=== PATIENT | male | born 1975 | race Caucasian/White ===

== ENCOUNTER 2016-03-15 14:52 | Emergency (ER) | payer OTHER ==
[2016-03-15 15:09] VITALS: BP 160/97
--- NOTE | 2016-03-15 16:02 | RAD ---
INDICATION: Cough, shortness of breath, chest pain. Intermittent fever. COMPARISON: February 12, 2013 TECHNIQUE: Dual energy PA and routine lateral views of the chest were obtained. REPORT: Clear lungs and pleural spaces. Negative for pneumothorax. The heart, pulmonary vasculature, and mediastinal contours are unremarkable. Unremarkable osseous structures and soft tissue contours. IMPRESSION: No evidence for pneumonia. No evidence for acute intrathoracic disease.
--- NOTE | 2016-03-15 16:04 | UC ---
Respiratory Complaint HPI - HPI Summary HPI Summary: Patient with CC of cough x 4 weeks with accompanying SOB. states he feels OK otherwise. no congestion, no sputum production. denies weakness, VALLADARES, chest tightness or chest discomfort. patient is obese. non-smoker. no allergies and takes no medications. - History of Current Complaint Chief Complaint: UCRespiratory Stated Complaint: COUGH Hx Obtained From: Patient Onset/Duration: Sudden Onset Severity Initially: Mild Severity Currently: Moderate Pain Intensity: 5 Pain Scale Used: 0-10 Numeric Character: Cough: Nonproductive Aggravating Factors: Deep Breaths Alleviating Factors: Nothing Associated Signs And Symptoms: Positive: Dyspnea - Risk Factors Pulmonary Embolism Risk Factors: Negative - Allergies/Home Medications Allergies/Adverse Reactions: Allergies Allergy/AdvReac Type Severity Reaction Status Date / Time No Known Allergies Allergy Verified 03/15/16 15:09 PMH/Surg Hx/FS Hx/Imm Hx Previously Healthy: Yes Endocrine History Of: Denies: Diabetes, Thyroid Disease, Hyperthyroidism, Hypothyroidism, Dyslipidemia Cardiovascular History Of: Denies: Cardiac Disorders, Hypertension, Pacemaker/ICD, Myocardial Infarction , Congestive Heart Failure, Atrial Fibrillation, Deep Vein Thrombosis, Bleeding Disorders Respiratory History Of: Denies: COPD, Asthma, Bronchitis, Pneumonia, Pulmonary Embolism GI/ History Of: Denies: Gastroesophageal Reflux, Ulcer, Gastrointestinal Bleed, Gall Bladder Disease, Kidney Stones, Diverticulitis, Renal Disease, Urosepsis Neurological History Of: Denies: TIA, CVA, Dementia, Seizures, Migraine Psychological History Of: Denies: Anxiety, Depression, Bipolar Disorder, Schizophrenia, Post Traumatic Stress Disorder Cancer History Of: Denies: Lung Cancer, Colorectal Cancer, Breast Cancer, Prostate Cancer, Cervical Cancer Other History Of: Negative For: HIV, Hepatitis B, Hepatitis C, Anticoagulant Therapy - Surgical History Surgical History: Yes Surgery Procedure, Year, and Place: LT KNEE- BONE CHIP REMOVED -2010. [facility]ESSICA VE[facility] leg. TONSILECTOMY. WISDOM TEETH - Family History Known Family History: Positive: Unknown Negative: Cardiac Disease, Hypertension - Social History Occupation: Employed Full-time Lives: With Family Alcohol Use: Occasionally Substance Use Type: None Smoking Status (MU): Never Smoked Tobacco Type: Smokeless Tobacco Review of Systems Constitutional: Negative Skin: Negative Eyes: Negative ENT: Negative Respiratory: Shortness Of Breath, Cough Cardiovascular: Negative Motor: Negative Musculoskeletal: Negative Neurological: Negative All Other Systems Reviewed And Are Negative: Yes Physical Exam Triage Information Reviewed: Yes Appearance: No Pain Distress, Obese - morbidly Vital Signs: Initial Vital Signs Temp 96.9 F 03/15/16 15:06 Pulse 102 03/15/16 15:06 Resp 18 03/15/16 15:06 BP 160/97 03/15/16 15:06 Pulse Ox 97 03/15/16 15:06 Vital Signs Reviewed: Yes Eye Exam: Normal Eyes: Positive: Conjunctiva Clear ENT Exam: Normal Dental Exam: Normal Neck exam: Normal Neck: Positive: Supple, Nontender, No Lymphadenopathy Respiratory Exam: Normal Respiratory: Positive: Chest non-tender, Decreased breath sounds Cardiovascular Exam: Normal Musculoskeletal Exam: Normal Musculoskeletal: Positive: Strength Intact, ROM Intact Neurological Exam: Normal Psychological Exam: Normal Psychological: Positive: Normal Response To Family, Age Appropriate Behavior Skin Exam: Normal Diagnostic Evaluation - Laboratory O2 Sat by Pulse Oximetry: 97 - Radiology Xray Interpretation: No Acute Changes Radiology Interpretation Completed By: Radiologist Respiratory Course/Dx - Course Course Of Treatment: Chest xray. no wheezing heard on physical exam. d/t cough of 4 weeks - chest xray ordered. no acute changes. patient prescribed short course prednisone, robitussin with codeine and return precautions for worsening symptoms. - Differential Dx/Diagnosis Differential Diagnosis/HQI/PQRI: Bronchitis, Lower Resp Infection, Sinusitis Provider Diagnoses: cough - Physician Notification/Consults Instructed by Provider To: Have Pt Call For Appt. Discharge - Discharge Plan Condition: Stable Disposition: HOME Prescriptions: guaiFENesin/CODIEN 100MG-10MG* [Robitussin AC 100Mg-10Mg*] 10 ml PO Q6H PRN # 200 ml MDD 40 PRN Reason: Cough predniSONE TAB* [Deltasone TAB*] 10 mg PO DAILY #17 tab Patient Education Materials: Upper Respiratory Infection (ED) Referrals: Henrietta Webster MD [Primary Care Provider] - Additional Instructions: Drink plenty of fluids. Take medications as prescribed to you. If symptoms worsen or fail to improve, come back to .
== END 2016-03-15 16:14 | disposition home or self-care (01) ==
LOC: UCEAST 14:52
DX: R05 Cough (principal); R06.02 Shortness of breath
CPT/HCPCS: 71020; 99211; G0463

== ENCOUNTER 2018-03-27 14:46 | Emergency (ER) | payer OTHER ==
[2018-03-27 15:17] VITALS: BP 169/94
--- NOTE | 2018-03-27 15:49 | ED ---
Abdominal Pain/Male - HPI Summary HPI Summary: patient has had pain in the abdomen for the last several days, somewhat better on sitting, no vomiting, no change in bowel habits - History of Current Complaint Chief Complaint: UCAbdominalPain Stated Complaint: ABDOMINAL PAIN Time Seen by Provider: 03/27/18 15:27 Hx Obtained From: Patient Onset/Duration: Sudden Onset Timing: Constant Severity Initially: Moderate Severity Currently: Moderate Pain Intensity: 6 - Allergies/Home Medications Allergies/Adverse Reactions: Allergies Allergy/AdvReac Type Severity Reaction Status Date / Time No Known Allergies Allergy Verified 03/27/18 15:17 Home Medications: Home Medications Telmisartan 40 mg PO DAILY 03/27/18 [History Confirmed 03/27/18] metFORMIN* [Glucophage 1000 MG TAB *] 500 mg PO BID 03/27/18 [History Confirmed 03/27/18] PMH/Surg Hx/FS Hx/Imm Hx Previously Healthy: No - diabetes , hypertension, 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 Endocrine/Hematology History: Reports: Hx Diabetes Denies: Hx Anticoagulant Therapy, Hx Thyroid Disease Cardiovascular History: Reports: Hx Hypertension Denies: Hx Congestive Heart Failure, Hx Deep Vein Thrombosis, Hx Myocardial Infarction, Hx Pacemaker/ICD Respiratory History: Denies: Hx Asthma, Hx Chronic Obstructive Pulmonary Disease (COPD), Hx Lung Cancer, Hx Pneumonia, Hx Pulmonary Embolism GI History: Denies: Hx Gall Bladder Disease, Hx Gastrointestinal Bleed, Hx Ulcer, Hx Urosepsis History: Denies: Hx Kidney Stones, Hx Renal Disease Musculoskeletal History: Denies: Hx Rheumatoid Arthritis, Hx Osteoporosis Sensory History: Denies: Hx Hearing Aid Neurological History: Denies: Hx Dementia, Hx Migraine, Hx Seizures, Hx Transient Ischemic Attacks (TIA) Psychiatric History: Denies: Hx Anxiety, Hx Depression, Hx Panic Disorder, Hx Schizophrenia, Hx Bipolar Disorder - Cancer History Cancer Type, Location and 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 [facility]ESSICA VEINS leg - [facility]. TONSILECTOMY. WISDOM TEETH Infectious Disease History: No Infectious Disease History: Denies: Hx Clostridium Difficile, Hx Hepatitis, Hx Human Immunodeficiency Virus (HIV), Hx of Known/Suspected MRSA, Hx Shingles, Hx Tuberculosis, Hx Known/ Suspected VRE, Hx Known/Suspected VRSA, History Other Infectious Disease, Traveled Outside the [place] in Last 30 Days - Family History Known Family History: Positive: Unknown Negative: Cardiac Disease, Hypertension - Social History Alcohol Use: Rare Substance Use Type: Reports: None Hx Tobacco Use: No Smoking Status (MU): Never Smoked Tobacco Type: Smokeless Tobacco Amount Used/How Often: 1 can a day Review of Systems Constitutional: Negative Eyes: Negative ENT: Negative Cardiovascular: Negative Respiratory: Negative Positive: Abdominal Pain Genitourinary: Negative Skin: Negative Neurological: Negative All Other Systems Reviewed And Are Negative: Yes Physical Exam Triage Information Reviewed: Yes Vital Signs On Initial Exam: Initial Vitals Temp Pulse Resp BP Pulse Ox 36.6 C 83 16 169/94 98 03/27/18 15:12 03/27/18 15:12 03/27/18 15:12 03/27/18 15:12 03/27/18 15:12 Vital Signs Reviewed: Yes Appearance: Positive: Well-Appearing Skin: Positive: Warm Head/Face: Positive: Normal Head/Face Inspection Eyes: Positive: Normal ENT: Positive: Normal ENT inspection Neck: Positive: Supple Respiratory/Lung Sounds: Positive: Clear to Auscultation Cardiovascular: Positive: Normal Abdomen Description: Positive: Soft - mild tenderness mid epigastrium, Other: - tender mid epigastrium superior to the umbilicus, palpable ventral hernia Bowel Sounds: Positive: Present Musculoskeletal: Positive: Normal Neurological: Positive: Normal Diagnostics - Vital Signs Vital Signs Temp Pulse Resp BP Pulse Ox 03/27/18 15:12 36.6 C 83 16 169/94 98 - Laboratory Lab Statement: Any lab studies that have been ordered have been reviewed, and results considered in the medical decision making process. Abdominal Pain Fem Course/Dx - Diagnoses Provider Diagnoses: Ventral hernia Discharge - Sign-Out/Discharge Documenting (check all that apply): Patient Departure All imaging exams completed and their final reports reviewed: Yes - Discharge Plan Condition: Good Disposition: HOME Patient Education Materials: Ventral Hernia (ED) Referrals: Henrietta Webster MD [Primary Care Provider] - - Billing Disposition and Condition Condition: GOOD Disposition: Home
== END 2018-03-27 16:41 | disposition home or self-care (01) ==
LOC: UCEAST 14:46
DX: K43.9 Ventral hernia without obstruction or gangrene (principal); E11.9 Type 2 diabetes mellitus without complications; Z79.84 Long term (current) use of oral hypoglycemic drugs; I10 Essential (primary) hypertension; F17.220 Nicotine dependence, chewing tobacco, uncomplicated
CPT/HCPCS: 74019; 99211; G0463

== ENCOUNTER 2019-07-02 05:59 | Day surgery (SDC) | payer OTHER ==
[~2019-07-02 05:59] MED LIST: Buffered Lidocaine 1% SYRIN 1 ml INTRADERM ONE; NS 0.9% 1000 ml BAG 1,000 ML IV SCH; Naloxone 0.4 mg VIAL 0.4 mg/ml 1 ml VIAL IV PRN; Prochlorperazine 5 mg/ml 2 ml VIAL (10 mg) IV PRN
[2019-07-02] MEDS ORDERED: Ondansetron ODT 4 mg TAB 4 MG TAB PO ONE (06:00)
[2019-07-02] MEDS ORDERED: Lactated Ringers 1000 ml BAG 1,000 ML IV SCH (06:00)
[2019-07-02] MEDS ORDERED: DiMENhydriNATE IV 50 mg/ml 1 ml VIAL IV PUSH ONE (06:00)
[2019-07-02] MEDS ORDERED: ceFAZolin* 2 GM* X ONE DOSE - OR, MCH (Pyxis) (Duplex) IVPB (06:00)
[2019-07-02] MEDS ORDERED: Famotidine IV 10 MG/ML 2 ml VIAL (20 mg) IV ONE (06:00)
[2019-07-02] MEDS ORDERED: ceFAZolin 2 GM PREMIX in ORs 2 GM/50 ML BAG ONE (06:30)
[2019-07-02] MEDS ORDERED: Famotidine IV 10 MG/ML 2 ml VIAL (20 mg) ONE (06:36)
[2019-07-02] MEDS ORDERED: DiMENhydriNATE IV 50 mg/ml 1 ml VIAL ONE (06:36)
[2019-07-02] MEDS ORDERED: Ondansetron ODT 4 mg TAB 4 MG TAB ONE (06:36)
[2019-07-02] MEDS ORDERED: Lidocaine 1% VIAL 10 MG/ML VIAL ONE (06:59)
[2019-07-02] MEDS ORDERED: ceFAZolin 1 GM ADVAN(*) 1 GM ADDV.VIAL IVPB ONE (07:17)
[2019-07-02] MEDS ORDERED: fentaNYL 100 mcg/2 ml 50 MCG/ML VIAL ONE ×2 (07:24→07:54)
[2019-07-02] MEDS ORDERED: Ketamine HCL 50 mg/ml 10 ml VIAL (500 MG) ONE (07:24)
[2019-07-02] MEDS ORDERED: Midazolam 5 mg/5 ml VIAL 1 mg/ml 5 ml VIAL (5 mg) ONE (07:24)
[2019-07-02] MEDS ORDERED: Sugammadex 500 MG/5 ML 5 ml VIAL IV PUSH ONE (07:29)
[2019-07-02] MEDS ORDERED: Succinylcholine 200 mg VIAL 20 mg/ml 10 ml VIAL (200 mg) ONE (07:30)
[2019-07-02] MEDS ORDERED: Rocuronium 50 mg VIAL 10 mg/ml 5 ml VIAL (50 mg) ONE (07:30)
[2019-07-02] MEDS ORDERED: Iohexol 180 (CONTRAST) 10 ML SDV IV ONE (08:27)
[2019-07-02] MEDS ORDERED: Acetaminophen IV 1 GM/100ML 100 ML ONE (08:51)
[2019-07-02] MEDS ORDERED: Phenylephrine 40 mcg/mL 10mL (400mcg) SYRINGE ONE (08:51)
[2019-07-02] MEDS ORDERED: EPHEDrine (Pressors) 50 MG/ML VIAL ONE (08:51)
[2019-07-02 10:49] VITALS: BP 146/90
== END 2019-07-02 10:00 | disposition home or self-care (01) ==
LOC: OR 05:59
PROVIDERS: ATTEND Surgery
DX: C49.9 Malignant neoplasm of connective and soft tissue, unspecified (principal); M19.90 Unspecified osteoarthritis, unspecified site; Z86.718 Personal history of other venous thrombosis and embolism; M10.9 Gout, unspecified; E66.9 Obesity, unspecified; E11.9 Type 2 diabetes mellitus without complications; Z79.84 Long term (current) use of oral hypoglycemic drugs

== ENCOUNTER 2019-09-01 08:32 | Inpatient (IN) ==
[~2019-09-01 08:32] MED LIST changes: -Buffered Lidocaine 1% SYRIN 1 ml INTRADERM ONE; +Dexamethasone IV 20 MG in Premix IV 0 ML IVPB SCH; -NS 0.9% 1000 ml BAG 1,000 ML IV SCH; -Naloxone 0.4 mg VIAL 0.4 mg/ml 1 ml VIAL IV PRN; -Prochlorperazine 5 mg/ml 2 ml VIAL (10 mg) IV PRN
[2019-09-01 09:11] LABS: ABS Lymphocytes 1.3 10^3/ul (1.0-4.8); ABS Monocytes 0.6 10^3/ul (0-0.8); Eosinophil % 0.4 %; Hematocrit 35 % (42-52); Hemoglobin 12.3 g/dL (14.0-18.0); Lymphocyte % 33.2 %; Mean Corpuscular HGB Conc 35 g/dL (31-36); Mean Corpuscular Hemoglobin 34 pg (27-31); Mean Corpuscular Volume 96 fL (80-94); Mean Platelet Volume 8.7 fL (7.4-10.4); Nucleated Red Blood Cells % 0.1; Platelet Count 221 10^3/uL (150-450); Red Blood Count 3.65 10^6 /uL (4.18-5.48); Red Cell Distribution Width 15 % (10-15); White Blood Count 3.8 10^3/uL (3.5-10.8)
[2019-09-01 09:22] LABS: Albumin 3.7 g/dL (3.2-5.2); Albumin/Globulin Ratio 1.2 (1-3); BUN/Creatinine Ratio 16.7 (8-20); Calcium 8.9 mg/dL (8.6-10.3); EGFR African American 89.1 (>60); EGFR Non-African American 73.6 (>60); Potassium 3.8 mmol/L (3.5-5.0); Total Bilirubin 0.5 mg/dL (0.2-1.0); Total Protein 6.7 g/dL (6.4-8.9)
[2019-09-01] MEDS ORDERED: PALONOSETRON HCL* 0.05 MG/ML (0.25 MG) SYRINGE (0.05 MG/ML) ONE (10:12)
[2019-09-01] MEDS ORDERED: LORazepam 0.5 mg TAB (*) PO PRN (10:27)
[2019-09-01] MEDS ORDERED: NS 0.9% IVPB ONE ×2 (11:00→11:30)
[2019-09-01] MEDS ORDERED: [UNRECOGNIZED DRUG - OTHER] IVPB ONE ×2 (11:00→11:30)
[2019-09-01] MEDS: Enoxaparin 40 MG/0.4 ML SYR(*) SUBCUT SCH (13:30)
[2019-09-02 11:52] VITALS: BP 188/109
[2019-09-02] MEDS: Enoxaparin 40 MG/0.4 ML SYR(*) SUBCUT SCH (12:49)
== END 2019-09-02 13:05 | disposition home or self-care (01) | DRG 847 ==
LOC: CHOA 08:32 → MED 08:32 → OBSVTOIN 11:11
PROVIDERS: ADMIT Internal Medicine Hematology & Oncology; ATTEND Internal Medicine Hematology & Oncology

== ENCOUNTER 2019-09-22 09:08 | Inpatient (IN) ==
[~2019-09-22 09:08] MED LIST changes: +NS 0.9% IVPB SCH; +[UNRECOGNIZED DRUG - OTHER] IVPB SCH
[2019-09-22 09:35] LABS: Hematocrit 33 % (42-52); Hemoglobin 11.9 g/dL (14.0-18.0); Mean Corpuscular HGB Conc 36 g/dL (31-36); Mean Corpuscular Hemoglobin 35 pg (27-31); Mean Corpuscular Volume 96 fL (80-94); Mean Platelet Volume 8.7 fL (7.4-10.4); Platelet Count 134 10^3/uL (150-450); Red Blood Count 3.42 10^6 /uL (4.18-5.48); Red Cell Distribution Width 15 % (10-15)
[2019-09-22 09:52] LABS: Albumin 3.6 g/dL (3.2-5.2); Albumin/Globulin Ratio 1.3 (1-3); BUN/Creatinine Ratio 26.4 (8-20); Calcium 8.8 mg/dL (8.6-10.3); EGFR African American 87.2 (>60); EGFR Non-African American 72.1 (>60); Globulin 2.8 g/dL (2-4); Potassium 3.6 mmol/L (3.5-5.0); Total Bilirubin 0.6 mg/dL (0.2-1.0); Total Protein 6.4 g/dL (6.4-8.9)
[2019-09-22] MEDS ORDERED: Morphine 2 MG/ML SYRINGE IV PRN (10:14)
[2019-09-22] MEDS ORDERED: Ondansetron 4 mg VIAL 2 MG/ML 2 ml VIAL IV PRN (10:14)
[2019-09-22] MEDS ORDERED: NS 0.9% 1000 ml BAG 1,000 ML IV SCH (10:15)
[2019-09-22 10:50] LABS: ABS Monocytes 0.6 10^3/ul (0-0.8); Eosinophil % 0.1 %; Lymphocyte % 39.8 %; Nucleated Red Blood Cells % 0.1
[2019-09-22] MEDS ORDERED: PALONOSETRON HCL* 0.05 MG/ML (0.25 MG) SYRINGE (0.05 MG/ML) ONE (11:19)
[2019-09-22] MEDS ORDERED: Lidocaine 2.5%/Prilocain 2.5% 5 GM TUBE TOPICAL ONE (12:00)
[2019-09-22] MEDS ORDERED: [UNRECOGNIZED DRUG - OTHER] IVPB ONE (13:00)
[2019-09-22] MEDS ORDERED: NS 0.9% IVPB ONE (13:00)
[2019-09-22] MEDS: Enoxaparin 40 MG/0.4 ML SYR(*) SUBCUT SCH (14:38)
[2019-09-22] MEDS: LORazepam 0.5 mg TAB (*) PO PRN (21:18)
[2019-09-23] MEDS: LORazepam 0.5 mg TAB (*) PO PRN (06:55)
[2019-09-23 07:29] LABS: Hematocrit 32 % (42-52); Hemoglobin 11.6 g/dL (14.0-18.0); Mean Corpuscular HGB Conc 37 g/dL (31-36); Mean Corpuscular Hemoglobin 35 pg (27-31); Mean Corpuscular Volume 95 fL (80-94); Mean Platelet Volume 8.8 fL (7.4-10.4); Platelet Count 166 10^3/uL (150-450); Red Blood Count 3.31 10^6 /uL (4.18-5.48); Red Cell Distribution Width 16 % (10-15); White Blood Count 7.2 10^3/uL (3.5-10.8)
[2019-09-23 07:54] LABS: Albumin 3.7 g/dL (3.2-5.2); Albumin/Globulin Ratio 1.3 (1-3); BUN/Creatinine Ratio 25.2 (8-20); Calcium 8.8 mg/dL (8.6-10.3); EGFR African American 94.1 (>60); EGFR Non-African American 77.7 (>60); Globulin 2.8 g/dL (2-4); Total Bilirubin 0.5 mg/dL (0.2-1.0); Total Protein 6.5 g/dL (6.4-8.9)
[2019-09-23 08:55] LABS: ABS Lymphocytes 1.1 10^3/ul (1.0-4.8); ABS Monocytes 0.7 10^3/ul (0-0.8); Lymphocyte % 15.8 %
[2019-09-23] MEDS ORDERED: TELMISARTAN PO SCH ×2 (09:00)
[2019-09-23] MEDS ORDERED: HCTZ PO SCH ×2 (09:00)
[2019-09-23 11:53] VITALS: BP 176/105
[2019-09-23] MEDS: Enoxaparin 40 MG/0.4 ML SYR(*) SUBCUT SCH (12:08)
== END 2019-09-23 14:49 | disposition home or self-care (01) | DRG 847 ==
LOC: CHOA 09:08 → MEDTELE 10:12
PROVIDERS: ADMIT Internal Medicine Hematology & Oncology; ATTEND Internal Medicine Hematology & Oncology

== ENCOUNTER 2019-10-23 07:59 | Inpatient (IN) ==
[~2019-10-23 07:59] MED LIST changes: +PALONOSETRON HCL 0.05 MG/ML (0.25 MG) SYRINGE (0.05 MG/ML) IV SCH; +[UNRECOGNIZED DRUG - OTHER] IVPB SCH; -[UNRECOGNIZED DRUG - OTHER] IVPB SCH
[2019-10-23 08:32] LABS: Hematocrit 28 % (42-52); Hemoglobin 9.4 g/dL (14.0-18.0); Mean Corpuscular HGB Conc 34 g/dL (31-36); Mean Corpuscular Hemoglobin 34 pg (27-31); Mean Corpuscular Volume 98 fL (80-94); Mean Platelet Volume 8.1 fL (7.4-10.4); Platelet Count 294 10^3/uL (150-450); Red Cell Distribution Width 19 % (10-15); White Blood Count 5.8 10^3/uL (3.5-10.8)
[2019-10-23 08:39] LABS: ABS Basophils 0.1 10^3/ul (0-0.2); ABS Monocytes 1.2 10^3/ul (0-0.8); ABS Neutrophils 2.6 10^3/ul (1.5-7.7); Eosinophil % 0.7 %; Lymphocyte % 33.8 %; Nucleated Red Blood Cells % 0.2
[2019-10-23 08:52] LABS: Albumin 3.5 g/dL (3.2-5.2); Albumin/Globulin Ratio 1.1 (1-3); BUN/Creatinine Ratio 11.6 (8-20); Calcium 9.2 mg/dL (8.6-10.3); EGFR African American 78.1 (>60); EGFR Non-African American 64.6 (>60); Globulin 3.3 g/dL (2-4); Total Bilirubin 0.8 mg/dL (0.2-1.0); Total Protein 6.8 g/dL (6.4-8.9)
[2019-10-23] MEDS ORDERED: PALONOSETRON HCL 0.05 MG/ML (0.25 MG) SYRINGE (0.05 MG/ML) ONE (10:16)
[2019-10-23] MEDS ORDERED: FAMOTIDINE 40 MG PO SCH (11:00)
[2019-10-23] MEDS: Enoxaparin 40 MG/0.4 ML SYR SUBCUT SCH (11:47)
[2019-10-23] MEDS ORDERED: [UNRECOGNIZED DRUG - OTHER] IVPB SCH (12:01)
[2019-10-23] MEDS ORDERED: NS 0.9% IVPB SCH (12:01)
[2019-10-23] MEDS ORDERED: [UNRECOGNIZED DRUG - OTHER] IVPB ONE (13:00)
[2019-10-23] MEDS ORDERED: NS 0.9% IVPB ONE (13:00)
[2019-10-24 08:16] LABS: Hematocrit 27 % (42-52); Hemoglobin 9.6 g/dL (14.0-18.0); Mean Corpuscular HGB Conc 35 g/dL (31-36); Mean Corpuscular Hemoglobin 34 pg (27-31); Mean Corpuscular Volume 98 fL (80-94); Platelet Count 339 10^3/uL (150-450); Red Blood Count 2.79 10^6 /uL (4.18-5.48); Red Cell Distribution Width 19 % (10-15); White Blood Count 12.4 10^3/uL (3.5-10.8)
[2019-10-24 08:24] VITALS: BP 144/83
[2019-10-24 08:42] LABS: Albumin 3.7 g/dL (3.2-5.2); Albumin/Globulin Ratio 1.1 (1-3); BUN/Creatinine Ratio 15.4 (8-20); Calcium 9.1 mg/dL (8.6-10.3); EGFR Non-African American 76.9 (>60); Globulin 3.4 g/dL (2-4); Potassium 4.3 mmol/L (3.5-5.0); Total Bilirubin 0.7 mg/dL (0.2-1.0); Total Protein 7.1 g/dL (6.4-8.9)
[2019-10-24 09:00] LABS: ABS Basophils 0.1 10^3/ul (0-0.2); ABS Lymphocytes 1.7 10^3/ul (1.0-4.8); ABS Monocytes 1.1 10^3/ul (0-0.8); ABS Neutrophils 9.5 10^3/ul (1.5-7.7); Lymphocyte % 13.5 %; Nucleated Red Blood Cells % 0.2
[2019-10-24] MEDS: Enoxaparin 40 MG/0.4 ML SYR SUBCUT SCH (09:49)
== END 2019-10-24 13:00 | disposition home or self-care (01) | DRG 847 ==
LOC: CHOA 07:59 → MEDTELE 11:25
PROVIDERS: ADMIT Physician Assistant; ATTEND Internal Medicine Hematology & Oncology

== ENCOUNTER 2019-11-13 08:00 | Inpatient (IN) ==
[2019-11-13 08:25] LABS: ABS Lymphocytes 1.8 10^3/ul (1.0-4.8); ABS Monocytes 0.7 10^3/ul (0-0.8); Eosinophil % 0.3 %; Hematocrit 31 % (42-52); Hemoglobin 10.9 g/dL (14.0-18.0); Lymphocyte % 40.7 %; Mean Corpuscular HGB Conc 35 g/dL (31-36); Mean Corpuscular Hemoglobin 35 pg (27-31); Mean Corpuscular Volume 100 fL (80-94); Mean Platelet Volume 8.5 fL (7.4-10.4); Platelet Count 155 10^3/uL (150-450); Red Blood Count 3.11 10^6 /uL (4.18-5.48); Red Cell Distribution Width 19 % (10-15); White Blood Count 4.5 10^3/uL (3.5-10.8)
[2019-11-13 08:38] LABS: Albumin 3.8 g/dL (3.2-5.2); Albumin/Globulin Ratio 1.2 (1-3); BUN/Creatinine Ratio 13.6 (8-20); Calcium 9.7 mg/dL (8.6-10.3); EGFR African American 70.7 (>60); EGFR Non-African American 58.4 (>60); Globulin 3.2 g/dL (2-4); Potassium 3.4 mmol/L (3.5-5.0)
[2019-11-13] MEDS ORDERED: Ondansetron 4 mg VIAL 2 MG/ML 2 ml VIAL IV PRN (09:15)
[2019-11-13] MEDS ORDERED: PALONOSETRON HCL 0.05 MG/ML (0.25 MG) SYRINGE (0.05 MG/ML) ONE (11:04)
[2019-11-13] MEDS ORDERED: PALONOSETRON HCL 0.05 MG/ML (0.25 MG) SYRINGE (0.05 MG/ML) IV ONE (11:05)
[2019-11-13] MEDS ORDERED: Dexamethasone IV 4 MG/ML 5 ML VIAL (20 MG) ONE (11:08)
[2019-11-13] MEDS ORDERED: Dexamethasone IV 4 MG/ML 5 ML VIAL (20 MG) IVPB ONE (11:10)
[2019-11-13] MEDS ORDERED: [UNRECOGNIZED DRUG - OTHER] IVPB ONE ×2 (12:00→12:30)
[2019-11-13] MEDS ORDERED: NS 0.9% IVPB ONE ×2 (12:00→12:30)
[2019-11-13] MEDS ORDERED: Enoxaparin 40 MG/0.4 ML SYR SUBCUT SCH (13:00)
[2019-11-14 04:31] LABS: Hematocrit 29 % (42-52); Hemoglobin 10.5 g/dL (14.0-18.0); Mean Corpuscular HGB Conc 36 g/dL (31-36); Mean Corpuscular Hemoglobin 36 pg (27-31); Mean Corpuscular Volume 99 fL (80-94); Mean Platelet Volume 8.7 fL (7.4-10.4); Platelet Count 165 10^3/uL (150-450); Red Blood Count 2.92 10^6 /uL (4.18-5.48); Red Cell Distribution Width 19 % (10-15); White Blood Count 6.1 10^3/uL (3.5-10.8)
[2019-11-14 04:50] LABS: Albumin 3.7 g/dL (3.2-5.2); Albumin/Globulin Ratio 1.2 (1-3); BUN/Creatinine Ratio 15.8 (8-20); Calcium 9.5 mg/dL (8.6-10.3); EGFR African American 83.7 (>60); EGFR Non-African American 69.2 (>60); Globulin 3.1 g/dL (2-4); Potassium 4.4 mmol/L (3.5-5.0); Total Bilirubin 0.8 mg/dL (0.2-1.0); Total Protein 6.8 g/dL (6.4-8.9)
[2019-11-14 08:03] LABS: ABS Monocytes 0.3 10^3/ul (0-0.8); ABS Neutrophils 4.8 10^3/ul (1.5-7.7); Nucleated Red Blood Cells % 0.1
[2019-11-14] MEDS ORDERED: HYDROCHLOROTHIAZIDE PO SCH (09:00)
[2019-11-14] MEDS ORDERED: TELMISARTAN PO SCH (09:00)
[2019-11-14 11:58] VITALS: BP 146/90
== END 2019-11-14 13:41 | disposition home or self-care (01) | DRG 847 ==
LOC: CHOA 08:00 → MEDTELE 08:48
PROVIDERS: ADMIT Internal Medicine Hematology & Oncology; ATTEND Internal Medicine Hematology & Oncology